=== PATIENT | male | born 1960 | race Caucasian/White ===

== ENCOUNTER 2016-10-22 10:16 | Emergency (ER) | payer MEDICAID ==
[~2016-10-22] VITALS: Ht 182.9 cm; Wt 90.7 kg
[2016-10-22 10:19] VITALS: BP 149/95; PULSE 122; RESP 18; TEMP 98.5; O2SAT 91
[2016-10-22] MEDS ORDERED: NACL 0.9% 1,000 ML IV SCH (10:55)
[2016-10-22] MEDS ORDERED: DEXAMETHASONE SOD PHOSPHATE 10 MG/ML VIAL IVP ONE (11:00)
[2016-10-22] MEDS ORDERED: KETOROLAC TROMETHAMINE 30 MG VIAL IVP ONE (11:00)
[2016-10-22 11:18] LABS: BASOPHILS # (AUTO) 0.1 K/uL (0.0-0.2); BASOPHILS % (AUTO) 0.7 % (0.0-2.0); EOSINOPHILS % (AUTO) 0.1 % (0.0-4.0); HEMATOCRIT 47.7 % (36-54); LYMPHOCYTES # (AUTO) 0.9 K/uL (1.0-5.5); LYMPHOCYTES % (AUTO) 7.9 % (20.5-51.5); MEAN CORPUSCULAR HEMOGLOBIN 30 pg (27-31); MEAN CORPUSCULAR HGB CONC 34 % (32-36); MEAN CORPUSCULAR VOLUME 89 fL (79.0-98.0); MONOCYTES # (AUTO) 1.3 K/uL (0.0-1.0); MONOCYTES % (AUTO) 11.6 % (1.7-9.3); NEUTROPHILS # (AUTO) 9.3 K/uL (1.8-7.7); NEUTROPHILS % (AUTO) 79.7 % (40.0-70.0); PLATELET COUNT (AUTO) 248 K/uL (130-430); RED BLOOD CELL COUNT(AUTO) 5.33 MIL/uL (4.2-6.2); RED CELL DISTRIBUTION WIDTH 12.4 % (9.0-15.0); WHITE BLOOD COUNT (AUTO) 11.6 K/uL (4.8-10.8)
[2016-10-22 11:31] LABS: CREATININE 1.2 mg/dL (0.55-1.30); POTASSIUM 4.2 mmol/L (3.5-5.1)
[2016-10-22 11:32] LABS: INR 1.1 (0.80-1.20)
[2016-10-22 11:35] LABS: ALBUMIN 3.2 g/dL (3.4-4.8); TOTAL BILIRUBIN 2.1 mg/dL (0.0-1.0); TOTAL PROTEIN, SERUM 7.8 g/dL (6.4-8.3)
[2016-10-22 12:28] VITALS: TEMP 99.3
[2016-10-22 12:42] LABS: BILIRUBIN,URINE NEGATIVE (NEGATIVE); BLOOD, URINE 1+ (NEGATIVE); CLARITY/URINE HAZY (CLEAR); COLOR,URINE YELLOW (YELLOW); GLUCOSE,URINE NEGATIVE (NEGATIVE); KETONES,URINE NEGATIVE (NEGATIVE); LEUKOCYTE ESTERASE ,URINE 3+ (NEGATIVE); NITRITE, URINE POSITIVE (NEGATIVE); PH,URINE 6.5 (5.0-8.0); PROTEIN URINE 1+ (NEGATIVE)
[2016-10-22 12:51] LABS: BACTERIA,URINE MANY /HPF (None Seen)
[2016-10-22 12:52] LABS: MUCUS,URINE None Seen /LPF (None Seen)
[2016-10-22 12:59] VITALS: BP 123/76; PULSE 93; RESP 16; O2SAT 97
[2016-10-22] MEDS ORDERED: ETOMIDATE 20 MG/ 10 ML VIAL (AMIDATE) ONE (19:34)
== END 2016-10-22 12:59 | disposition home or self-care (01) ==
LOC: SED 10:16
DX: N39.0 Urinary tract infection, site not specified (principal)
CPT/HCPCS: 36415; 71010; 80053; 81000; 83605; 84484; 85025; 85610; 85730; 86710; 87040; 87086; 93005; 96361; 96374; 96375; 99285; J1100; J1885; J7030; 87186-TC; J3490

== ENCOUNTER 2017-04-11 17:03 | Emergency (ER) | payer MEDICAID ==
[~2017-04-11] VITALS: Ht 182.9 cm; Wt 96.6 kg
[2017-04-11 17:05] VITALS: BP_SYST 131
[2017-04-11 19:28] VITALS: BP_SYST 128
== END 2017-04-11 19:28 | disposition home or self-care (01) ==
LOC: SED 17:03
DX: G89.29 Other chronic pain (principal); M79.604 Pain in right leg
CPT/HCPCS: 73590-TC; 93970; 99284